=== PATIENT | male | born 1985 ===

== ENCOUNTER 2022-10-18 00:22 | Emergency (ER) | payer MEDICAID ==
[2022-10-18] MEDS ORDERED: Sodium Chloride 0.9% 1,000 ML IV SCH (01:00)
[2022-10-18 01:05] LABS: BASOPHILS ABSOLUTE AUTO 0.04 K/mm3 (0.01-0.08); BASOPHILS PERCENT AUTO 0.3 % (0.1-1.2); EOSINOPHILS ABSOLUTE AUTO 0.56 K/mm3 (0.04-0.54); EOSINOPHILS PERCENT AUTO 4.2 (0.8-7.0); HEMATOCRIT 48.3 % (40.1-51.0); IMMATURE GRAN ABSOLUTE AUTO 0.04 K/mm3 (0.00-0.10); IMMATURE GRAN PERCENT AUTO 0.3 % (<=1.0); LYMPHOCYTES ABSOLUTE AUTO 2.42 K/mm3 (1.32-3.57); MEAN CORPUSCULAR HEMOGLOBIN 27.8 pg (25.7-32.2); MEAN CORPUSCULAR HGB CONC 33.1 g/dl (32.2-35.5); MEAN CORPUSCULAR VOLUME 83.9 fl (79.0-92.2); MEAN PLATELET VOLUME 8.3 fl (9.4-12.3); MONOCYTES ABSOLUTE AUTO 1.41 K/mm3 (0.30-0.82); MONOCYTES PERCENT AUTO 10.5 % (5.3-12.2); NEUTROPHILS ABSOLUTE AUTO 8.96 K/mm3 (1.78-5.38); NEUTROPHILS PERCENT AUTO 66.7 % (34.0-67.9); PLATELET COUNT,PLT 442 K/mm3 (163-337); RED BLOOD CELL COUNT 5.76 M/mm3 (4.63-6.08); WHITE BLOOD CELL COUNT,WBC 13.43 K/mm3 (4.23-9.07)
[2022-10-18 01:26] LABS: A/G RATIO 0.9 (1-2); ALBUMIN 3.6 g/dl (3.4-5.0); BILIRUBIN TOTAL 0.4 mg/dL (0.2-1.0); BUN/CREATININE RATIO 7.3 (14-18); CALCIUM 9.3 mg/dL (8.5-10.1); CREATININE 1.1 mg/dL (0.7-1.3); EST CRCL DRUG DOSING (CG) 110.69 mL/min; PROTEIN TOTAL,TP 7.7 g/dl (6.4-8.2)
[2022-10-18] MEDS ORDERED: Orphenadrine 100 MG Tab.ER PO STA (01:32)
[2022-10-18] MEDS ORDERED: Ibuprofen 600 MG Tab PO ONE (01:35)
== END 2022-10-18 02:02 | disposition home or self-care (01) ==
LOC: JD.ED 00:22
DX: S39.011A Strain of muscle, fascia and tendon of abdomen, initial encounter (principal); K21.9 Gastro-esophageal reflux disease without esophagitis; E11.9 Type 2 diabetes mellitus without complications; F17.210 Nicotine dependence, cigarettes, uncomplicated; E66.9 Obesity, unspecified; Z68.41 Body mass index [BMI] 40.0-44.9, adult; Z86.16 Personal history of COVID-19; Z88.8 Allergy status to other drugs, medicaments and biological substances; Z79.899 Other long term (current) drug therapy; X50.1XXA Overexertion from prolonged static or awkward postures, initial encounter
CPT/HCPCS: 36415; 74177; 80053; 85025; 99284; A9270; 99283